=== PATIENT | female | born 1950 ===

== ENCOUNTER → 2025-02-17 | Outpatient (CLI) | payer OTHER ==
[~2025-02-17] MED LIST: AMLO5 PO; ATEN25 PO; BENAZEPRIL HCL40 M1 PO; FURO20 PO; THERA-D2000 UNIT PO; VITAMIN B-122000 MC1
== END ==
LOC: LAB 11:14 → LAB SHORT 11:14
DX: N39.0 Urinary tract infection, site not specified (principal)
CPT/HCPCS: 87077; 87086; 87186

== ENCOUNTER 2025-06-14 11:56 | Day surgery (SDC) | payer OTHER ==
[~2025-06-14] VITALS: Ht 162.6 cm; Wt 86.7 kg
[~2025-06-14 11:56] MED LIST changes: +Bupivacaine 0.5% W/EPI 1:200000 SDV 30 ML Vial ONE
[2025-06-14] MEDS ORDERED: CeFAZolin Sodium 2,000 MG VIAL ONE (12:19)
[2025-06-14] MEDS ORDERED: FentaNYL Citrate 50 MCG/ML 2 ML Injection ONE ×2 (12:27→15:25)
[2025-06-14] MEDS ORDERED: Midazolam HCl 1MG / ML 2ML Vial ONE (13:22)
[2025-06-14] MEDS ORDERED: Ondansetron HCl 2 MG / ML 2ML Vial ONE (13:27)
[2025-06-14] MEDS ORDERED: Dexamethasone Sod Phos 10 MG/ML 1ML VIAL ONE (13:27)
[2025-06-14 15:41] VITALS: BP 107/70
--- NOTE | 2025-06-14 16:15 | NUR ---
06/14/25 1615 Zeinab Jo PT RATES PAIN TOLERABLE /10 AT THIS TIME. PT DRESSED WITH HELP FROM RN. PT SENT HOME WITH PERSONAL BELONGINGS, DC INSTRUCTIONS, AND ICE PACK. PT VOICED SATISFACTION WITH THE CARE TODAY AT [facility].
== END 2025-06-14 16:15 | disposition home or self-care (01) ==
LOC: ORSCSDS 11:56
PROVIDERS: Podiatrist Foot & Ankle Surgery
PROC: 0SGL04Z Fusion of Left Tarsometatarsal Joint with Internal Fixation Device, Open Approach (ICD-10-PCS; principal; 2025-06-14 13:30)
PROC: 0SGQ04Z Fusion of Left Toe Phalangeal Joint with Internal Fixation Device, Open Approach (ICD-10-PCS; principal; 2025-06-14 13:30)
PROC: 0QBR0ZZ Excision of Left Toe Phalanx, Open Approach (ICD-10-PCS; principal; 2025-06-14 13:30)
PROC: 0QBP0ZZ Excision of Left Metatarsal, Open Approach (ICD-10-PCS; principal; 2025-06-14 13:30)
DX: M21.612 Bunion of left foot (principal); M20.42 Other hammer toe(s) (acquired), left foot; I12.9 Hypertensive chronic kidney disease with stage 1 through stage 4 chronic kidney disease, or unspecified chronic kidney disease; N18.9 Chronic kidney disease, unspecified; Z79.899 Other long term (current) drug therapy
CPT/HCPCS: A6253; C1713; J0690; J1100; J2250; J2405; J2704; J3010; J7120